=== PATIENT | female | born 1940 | race Caucasian/White ===

== ENCOUNTER 2017-11-15 08:55 | Emergency (ER) | payer OTHER ==
[~2017-11-15] VITALS: Ht 152.4 cm; Wt 85.0 kg
[~2017-11-15 08:55] MED LIST: AMLO10CA3 PO; ASPI1TAB57 PO; CALC1TAB34 PO; CRANCAP2 PO; DULO1CAP2 PO; LISI20TA3 PO; METH5TAB4 PO; MULT1TAB61 PO; PENT400T PO; RANI1TAB7 PO
[2017-11-15 09:04] VITALS: BP 179/78; PULSE 86; RESP 16; TEMP 99.4; O2SAT 97
[2017-11-15] MEDS ORDERED: NEUROPATHY MED (09:25)
--- NOTE | 2017-11-15 10:06 | PD ---
HPI Chief Complaint: Musculoskeletal Complaint Time Seen by Provider: 09:40 Travel History International Travel<30 days: No Contact w/Intl Traveler<30days: No Traveled to known affect area: No History of Present Illness HPI 77 -year-old female here with left shoulder pain. She reports 2 days ago she had a mechanical trip falling against a wall injuring the left shoulder. She did not fall to the ground. No head injury or loss of consciousness. She had surgical repair of the left shoulder one year ago. She denies paresthesia or weakness in the extremity. She has pain with forced flexion and rotation. Pain slightly relieved with rest. PFSH Past Medical History Hx Anticoagulant Therapy: Yes (asa 81 mg) Arthritis: Yes Cancer: Yes (RECTAL WITH CHEMO RADIATION) Cardiovascular Problems: Yes (htn on meds) Chemotherapy: Yes Diminished Hearing: No Endocrine: No Genitourinary: No Hypertension: Yes Musculoskeletal: Yes Neurologic: No Psychiatric: No Reproductive: No Respiratory: No Immunizations Current: No Radiation Therapy: Yes Tetanus Vaccination: < 5 Years Influenza Vaccination: No ?: Not Menopausal: Yes Past Surgical History Other Surgery: Yes Social History Alcohol Use: Yes (occas mix drinks) Tobacco Use: No (quit 25-30 yrs ago) Substance Use: No Allergies-Medications (Allergen,Severity, Reaction): Coded Allergies: Sulfa (Sulfonamide Antibiotics) (Verified Allergy, Severe, HIVES, 11/15/17 ) morphine (Verified Adverse Reaction, Intermediate, VOMITS, 11/15/17) Reported Meds & Prescriptions Reported Meds & Active Scripts Active Reported [Neuropathy Med] Cranberry Urinary Comfort (Vitamins C & E) 1 Cap 1 Cap PO BID Caltrate 600+D Plus Minerals (Calcium Carbonate-Vitamin D W/Minerals) 600-800 Mg -Unit Tab 1 Tab PO DAILY Duloxetine DR (Duloxetine HCl) 30 Mg Capdr 30 Mg PO DAILY Methimazole 5 Mg Tab 5 Mg PO DAILY Pentoxifylline ER (Pentoxifylline) 400 Mg Tab 400 Mg PO BID Centrum Silver Women Tablet (Multivit-Min/Iron/Folic/Lutein) 8 Mg Iron-400 Mcg- 300 Mcg Tablet 1 Tab PO DAILY Aspirin 81 (Aspirin) 81 Mg Tabdr 81 Mg PO DAILY Ranitidine Maximum Strength (Ranitidine HCl) 150 Mg Tab 150 Mg PO BID Lisinopril-Hctz 20-25 Mg Tab 1 Tab PO DAILY Amlodipine-Benazepril 10-40 Mg Cap 1 Cap PO DAILY Review of Systems Except as stated in HPI: all other systems reviewed are Neg Physical Exam Narrative GENERAL: Alert, well-appearing female. No distress. SKIN: Warm and dry. HEAD: Normocephalic. EYES: No injection or drainage. NECK: Supple, trachea midline. No JVD or lymphadenopathy. CARDIOVASCULAR: Regular rate and rhythm without murmurs, gallops, or rubs. RESPIRATORY: Breath sounds equal bilaterally. No accessory muscle use. GASTROINTESTINAL: Abdomen soft, non-tender, nondistended. MUSCULOSKELETAL: No cyanosis, or edema. Left upper extremity: Tenderness to the anterior proximal humeral head. Pain with forward extension and external rotation. 2+ brachial, radial pulse. Normal sensation. Brisk cap refill. Data Data Last Documented VS Vital Signs Date Time Temp Pulse Resp B/P (MAP) Pulse Ox O2 Delivery O2 Flow Rate FiO2 11/15/17 09:04 99.4 86 16 179/78 (111) 97 Orders Orders Shoulder, Complete (>2vws) (11/15/17 ) Ketorolac Inj (Toradol Inj) (11/15/17 10:30) [facility] Medical Decision Making Medical Screen Exam Complete: Yes Emergency Medical Condition: Yes Differential Diagnosis Contusion, humerus fracture, strain Narrative Course 77-year-old female here with left anterior shoulder pain. Extremities neurovascularly intact. X-ray is negative for fracture. Diagnosis Primary Impression: Shoulder pain Qualified Codes: M25.512 - Pain in left shoulder Referrals: Marquez Young MD Additional Instructions: Rest. Continue taking Aleve or ibuprofen 800MG (4 [id number] tablets) Ice and heat. Scripts Cyclobenzaprine (Flexeril) 10 Mg Tab 10 MG PO BID for Muscle Spasm, #12 TAB 0 Refills Prov: Zainab Livingston 11/15/17 Disposition: 01 DISCHARGE HOME Condition: Stable Zainab Livingston Nov 15, 2017 10:06
--- NOTE | 2017-11-15 10:08 | RADRPT ---
EXAM DATE/TIME: 11/15/2017 09:50 [facility] COMPARISON: No previous studies available for comparison. INDICATIONS : Left shoulder pain after being knocked into a wall. Painful abduction of left arm. MEDICAL HISTORY : Hypertension. Arthritis. Carcinoma, rectal. Chemotherapy. Radiation therapy. SURGICAL HISTORY : Left wrist. Left knee. Left shoulder. ENCOUNTER: Initial ACUITY: 3 days PAIN SCORE: 7/10 LOCATION: Left shoulder FINDINGS: Multiple views of the left shoulder were obtained and demonstrate that the patient is status post ivan ulder arthroplasty. The humeral component is intact with no evidence of fracture or loosening. There is diffuse osteopenia. The acromial clavicular joint is unremarkable. The scapula is intact. Soft tis sues appear unremarkable. CONCLUSION: 1. Status post shoulder arthroplasty. 2. Osteopenia with no evidence of fracture or loosening. Alexis Sotelo MD on November 15, 2017 at 10:06 Board Certified Radiologist. This report was verified electronically.
[2017-11-15] MEDS ORDERED: KETOROLAC TROMETHAMINE 60 MG/2 ML (IM) VIAL IM ONE (10:30)
[2017-11-15] MEDS ORDERED: CYCL10TA PO (10:32)
== END 2017-11-15 10:38 | disposition home or self-care (01) ==
LOC: PHEFT 08:55
DX: M25.512 Pain in left shoulder (principal); M85.812 Other specified disorders of bone density and structure, left shoulder; M19.90 Unspecified osteoarthritis, unspecified site; I10 Essential (primary) hypertension; Z88.2 Allergy status to sulfonamides; Z88.5 Allergy status to narcotic agent; Z79.82 Long term (current) use of aspirin; Z79.899 Other long term (current) drug therapy
CPT/HCPCS: 73030; 96372; 99284; J1885